=== PATIENT | male | born 1960 | race Caucasian/White ===

== ENCOUNTER 2022-06-08 15:37 | Inpatient (IN) ==
[2022-06-08] MEDS ORDERED: FUROSEMIDE 40 MG/4 ML VIAL IV STA (16:15)
[2022-06-08 17:05] LABS: INR 1.2; PT Patient Result 13.5 SECS (10.1-12.1)
[2022-06-08 17:08] LABS: Albumin 3.2 G/DL (3.4-5.0); Bilirubin,Total 0.9 MG/DL (0.20-1.00); Calcium 9.1 MG/DL (8.5-10.1); Osmolality,Calculated 289.1 MOS/KG (273-304); Potassium 4.4 MMOL/L (3.5-5.1); Total Protein 6.4 G/DL (6.4-8.2)
[2022-06-08] MEDS ORDERED: ACETAMINOPHEN 325 MG TABLET PO PRN (17:27)
[2022-06-08] MEDS ORDERED: hydrALAZINE 20 MG/1 ML VIAL IV PRN (17:27)
[2022-06-08 17:29] LABS: Basophils # 0.1 10*3/uL (0.0-0.2); Eosinophils # 0.7 10*3/uL (0.0-0.87); Eosinophils % 10.5 % (0.00-10.9); Hematocrit 34.8 VOL% (42.0-52.0); Hemoglobin 11.1 GM/DL (14.0-18.0); Immature Granulocytes % 0.2 %; Immature Granulocytes Absolute 0.01 #; Lymphocytes # 0.7 10*3/uL (1.4-4.0); Lymphocytes % 11.5 % (21.2-54.2); Mean Corpuscular HGB Conc 31.9 GM/DL (32-36); Mean Corpuscular Volume 96.1 FL (87-102); Mean Platelet Volume 11.5 FL (9.6-12.0); Monocytes # 0.5 10*3/uL (0.11-0.8); Monocytes % 8.7 % (1.7-12.7); Neutrophils % 68.1 % (38.7-73.9); Platelet Count 129 T/CUMM (130-400); Red Blood Count 3.62 MC/CUMM (3.8-5.5); Red Cell Distribution Width 17.9 % (9.3-17.3); White Blood Count 6.2 T/CUMM (4-12)
[2022-06-08 17:40] LABS: Anisocytosis 1+; Band Neutrophils 1 % (0-10); Lymphocytes 14 % (20-55); Platelet Estimate Decreased; Total Cells Counted 100
[2022-06-09 05:17] LABS: Basophils # 0.1 10*3/uL (0.0-0.2); Basophils % 1.1 % (0.0-0.8); Eosinophils # 0.7 10*3/uL (0.0-0.87); Eosinophils % 11.5 % (0.00-10.9); Hematocrit 32.8 VOL% (42.0-52.0); Hemoglobin 10.7 GM/DL (14.0-18.0); Immature Granulocytes % 0.2 %; Immature Granulocytes Absolute 0.01 #; Lymphocytes # 0.7 10*3/uL (1.4-4.0); Lymphocytes % 10.9 % (21.2-54.2); Mean Corpuscular HGB Conc 32.6 GM/DL (32-36); Mean Corpuscular Volume 95.6 FL (87-102); Mean Platelet Volume 11.2 FL (9.6-12.0); Monocytes # 0.7 10*3/uL (0.11-0.8); Monocytes % 11.4 % (1.7-12.7); Neutrophils % 64.9 % (38.7-73.9); Platelet Count 124 T/CUMM (130-400); Red Blood Count 3.43 MC/CUMM (3.8-5.5); Red Cell Distribution Width 17.8 % (9.3-17.3); White Blood Count 6.4 T/CUMM (4-12)
[2022-06-09 05:40] LABS: Calcium 9.1 MG/DL (8.5-10.1); Osmolality,Calculated 289.2 MOS/KG (273-304); Potassium 4.4 MMOL/L (3.5-5.1); Risk Ratio 2.66; Thyroid Stimulating Hormone 1.32 uIU/ml (0.358-3.74)
[2022-06-09 05:48] LABS: Eosinophils 14 % (0-10); Lymphocytes 3 % (20-55); Platelet Estimate Normal; Total Cells Counted 100
[2022-06-09 05:49] LABS: Ovalocytes Slight
[2022-06-09] MEDS: PANTOPRAZOLE 40 MG TABLET PO SCH (08:11)
[2022-06-09] MEDS ORDERED: TISSUE ADHESIVE 1 EACH APPLICATOR TOP ONE (10:19)
[2022-06-09] MEDS ORDERED: SKIN HEALING OINT (AQUAPHOR) 50 GM TUBE TOP PRN (12:36)
[2022-06-09] MEDS ORDERED: ONDANSETRON 4 MG/2 ML VIAL IV PRN (12:40)
[2022-06-09] MEDS: carvediloL 3.125 MG TABLET PO SCH (18:13)
[2022-06-09] MEDS ORDERED: GLUCAGON 1 MG VIAL IM PRN (18:57)
[2022-06-09] MEDS ORDERED: DEXTROSE 10% 250 ML BAG IV PRN (19:18)
[2022-06-09] MEDS: SACUBITRIL/VALSARTAN 49-51 MG TABLET PO SCH (20:54)
[2022-06-09] MEDS: HEPARIN 5,000 UNIT/1 ML VIAL SUBCUT SCH (21:15)
[2022-06-09] MEDS: MORPHINE 2 MG/1 ML SYRINGE IV PRN (23:43)
[2022-06-10] MEDS: MORPHINE 2 MG/1 ML SYRINGE IV PRN ×2 (05:43→12:18)
[2022-06-10 05:59] LABS: % Iron Saturation 24.5 % (18-50)
[2022-06-10 06:36] LABS: Hepatitis B Core IgM Quant 0.16 Index; Hepatitis B Surface Ag Quant < 0.10 Index; Hepatitis B Surface Ag Result Non-Reactive (NonReactive); Hepatitis C Virus Ab Quant 0.11 Index; Hepatitis C Virus Ab Result Non-Reactive (NonReactive)
[2022-06-10 07:45] LABS: Basophils # 0.1 10*3/uL (0.0-0.2); Basophils % 0.9 % (0.0-0.8); Eosinophils # 1.1 10*3/uL (0.0-0.87); Eosinophils % 16.2 % (0.00-10.9); Hematocrit 34.1 VOL% (42.0-52.0); Hemoglobin 11.1 GM/DL (14.0-18.0); Immature Granulocytes % 0.2 %; Immature Granulocytes Absolute 0.01 #; Lymphocytes # 0.8 10*3/uL (1.4-4.0); Lymphocytes % 11.6 % (21.2-54.2); Mean Corpuscular HGB Conc 32.6 GM/DL (32-36); Mean Corpuscular Volume 95.8 FL (87-102); Mean Platelet Volume 12.5 FL (9.6-12.0); Monocytes # 0.6 10*3/uL (0.11-0.8); Monocytes % 9.9 % (1.7-12.7); Neutrophils % 61.2 % (38.7-73.9); Platelet Count 132 T/CUMM (130-400); Red Blood Count 3.56 MC/CUMM (3.8-5.5); Red Cell Distribution Width 17.7 % (9.3-17.3); White Blood Count 6.5 T/CUMM (4-12)
[2022-06-10 08:04] LABS: Eosinophils 21 % (0-10); Hypochromia Slight; Lymphocytes 12 % (20-55); Ovalocytes Slight; Total Cells Counted 100
[2022-06-10 08:05] LABS: Acanthocytes Few; Microcytosis 1+; Platelet Estimate Adequate
[2022-06-10 08:20] LABS: Albumin 2.9 G/DL (3.4-5.0); Bilirubin,Total 0.8 MG/DL (0.20-1.00); Calcium 8.6 MG/DL (8.5-10.1); Osmolality,Calculated 289.2 MOS/KG (273-304); Potassium 4.8 MMOL/L (3.5-5.1); Total Protein 5.8 G/DL (6.4-8.2)
[2022-06-10] MEDS ORDERED: DAPAGLIFLOZIN 5 MG TABLET PO SCH (09:00)
[2022-06-10] MEDS: ASPIRIN CHEW 81 MG TABLET PO SCH (10:06)
[2022-06-10] MEDS: carvediloL 3.125 MG TABLET PO SCH ×2 (10:06→16:13)
[2022-06-10] MEDS: SACUBITRIL/VALSARTAN 49-51 MG TABLET PO SCH ×2 (10:06→20:11)
[2022-06-10] MEDS ORDERED: HEPARIN 10,000 UNIT/10 ML VIAL IV SCH (10:15)
[2022-06-10] MEDS: PANTOPRAZOLE 40 MG TABLET PO SCH (10:39)
[2022-06-10] MEDS: GABAPENTIN 300 MG CAPSULE PO SCH ×2 (12:16→20:11)
[2022-06-10] MEDS: HEPARIN 5,000 UNIT/1 ML VIAL SUBCUT SCH ×2 (12:17→20:11)
[2022-06-11 05:26] LABS: Basophils # 0.1 10*3/uL (0.0-0.2); Basophils % 1.1 % (0.0-0.8); Eosinophils # 1.3 10*3/uL (0.0-0.87); Eosinophils % 21.2 % (0.00-10.9); Hematocrit 35.5 VOL% (42.0-52.0); Hemoglobin 11.4 GM/DL (14.0-18.0); Immature Granulocytes % 0.3 %; Immature Granulocytes Absolute 0.02 #; Lymphocytes # 0.8 10*3/uL (1.4-4.0); Lymphocytes % 13.1 % (21.2-54.2); Mean Corpuscular HGB Conc 32.1 GM/DL (32-36); Mean Corpuscular Volume 95.7 FL (87-102); Mean Platelet Volume 11.5 FL (9.6-12.0); Monocytes # 0.6 10*3/uL (0.11-0.8); Monocytes % 10.1 % (1.7-12.7); Neutrophils % 54.2 % (38.7-73.9); Platelet Count 122 T/CUMM (130-400); Red Blood Count 3.71 MC/CUMM (3.8-5.5); Red Cell Distribution Width 17.5 % (9.3-17.3); White Blood Count 6.1 T/CUMM (4-12)
[2022-06-11 05:47] LABS: Albumin 2.6 G/DL (3.4-5.0); Bilirubin,Total 0.7 MG/DL (0.20-1.00); Osmolality,Calculated 282.2 MOS/KG (273-304); Potassium 4.9 MMOL/L (3.5-5.1); Total Protein 5.5 G/DL (6.4-8.2)
[2022-06-11 06:15] LABS: Eosinophils 22 % (0-10); Lymphocytes 15 % (20-55); Platelet Estimate Adequate; Total Cells Counted 100
[2022-06-11] MEDS: carvediloL 3.125 MG TABLET PO SCH (09:31)
[2022-06-11] MEDS ORDERED: TISSUE ADHESIVE 1 EACH APPLICATOR TOP ONE (10:19)
[2022-06-11] MEDS: ASPIRIN CHEW 81 MG TABLET PO SCH (10:46)
[2022-06-11] MEDS: HEPARIN 5,000 UNIT/1 ML VIAL SUBCUT SCH ×2 (10:46→20:25)
[2022-06-11] MEDS: PANTOPRAZOLE 40 MG TABLET PO SCH (10:47)
[2022-06-11] MEDS: GABAPENTIN 300 MG CAPSULE PO SCH ×2 (10:47→20:26)
[2022-06-11 11:43] LABS: Neutrophils,Peritoneal Fluid 3 %
[2022-06-11 11:45] LABS: RBC,Peritoneal Fluid 301 T/CUMM
[2022-06-12] MEDS: ASPIRIN CHEW 81 MG TABLET PO SCH (08:07)
[2022-06-12] MEDS: HEPARIN 5,000 UNIT/1 ML VIAL SUBCUT SCH ×2 (08:07→22:00)
[2022-06-12] MEDS: PANTOPRAZOLE 40 MG TABLET PO SCH (08:07)
[2022-06-12] MEDS: GABAPENTIN 300 MG CAPSULE PO SCH ×2 (08:07→22:00)
[2022-06-13 05:07] LABS: Basophils # 0.1 10*3/uL (0.0-0.2); Basophils % 0.6 % (0.0-0.8); Eosinophils # 1.3 10*3/uL (0.0-0.87); Eosinophils % 16.4 % (0.00-10.9); Hematocrit 35.8 VOL% (42.0-52.0); Hemoglobin 11.4 GM/DL (14.0-18.0); Immature Granulocytes % 0.1 %; Immature Granulocytes Absolute 0.01 #; Lymphocytes # 0.6 10*3/uL (1.4-4.0); Lymphocytes % 7.6 % (21.2-54.2); Mean Corpuscular HGB Conc 31.8 GM/DL (32-36); Mean Corpuscular Volume 96.8 FL (87-102); Mean Platelet Volume 12.2 FL (9.6-12.0); Monocytes # 0.7 10*3/uL (0.11-0.8); Monocytes % 7.9 % (1.7-12.7); Neutrophils % 67.4 % (38.7-73.9); Platelet Count 126 T/CUMM (130-400); Red Cell Distribution Width 17.5 % (9.3-17.3); White Blood Count 8.2 T/CUMM (4-12)
[2022-06-13 05:30] LABS: Eosinophils 12 % (0-10); Lymphocytes 11 % (20-55); Total Cells Counted 100
[2022-06-13 05:44] LABS: Albumin 2.8 G/DL (3.4-5.0); Bilirubin,Total 0.6 MG/DL (0.20-1.00); Calcium 8.3 MG/DL (8.5-10.1); Osmolality,Calculated 284.1 MOS/KG (273-304); Potassium 4.8 MMOL/L (3.5-5.1)
[2022-06-13] MEDS: ASPIRIN CHEW 81 MG TABLET PO SCH (10:30)
[2022-06-13] MEDS: PANTOPRAZOLE 40 MG TABLET PO SCH (10:31)
[2022-06-13] MEDS: GABAPENTIN 300 MG CAPSULE PO SCH (10:31)
[2022-06-13] MEDS: HEPARIN 5,000 UNIT/1 ML VIAL SUBCUT SCH ×2 (10:32→20:41)
[2022-06-14 05:23] LABS: Basophils # 0.1 10*3/uL (0.0-0.2); Basophils % 0.6 % (0.0-0.8); Eosinophils # 1.6 10*3/uL (0.0-0.87); Eosinophils % 20.6 % (0.00-10.9); Hemoglobin 11.2 GM/DL (14.0-18.0); Immature Granulocytes % 0.4 %; Immature Granulocytes Absolute 0.03 #; Lymphocytes # 0.8 10*3/uL (1.4-4.0); Lymphocytes % 10.2 % (21.2-54.2); Mean Corpuscular Volume 96.7 FL (87-102); Mean Platelet Volume 11.8 FL (9.6-12.0); Monocytes # 0.7 10*3/uL (0.11-0.8); Monocytes % 8.7 % (1.7-12.7); Neutrophils % 59.5 % (38.7-73.9); Platelet Count 131 T/CUMM (130-400); Red Blood Count 3.62 MC/CUMM (3.8-5.5); Red Cell Distribution Width 17.4 % (9.3-17.3); White Blood Count 7.8 T/CUMM (4-12)
[2022-06-14 05:43] LABS: Phosphorous 5.9 MG/DL (2.5-4.9); Uric Acid 5.8 MG/DL (3.5-7.2)
[2022-06-14 05:44] LABS: Eosinophils 21 % (0-10); Hypochromia Slight; Lymphocytes 12 % (20-55); Total Cells Counted 100
[2022-06-14 05:45] LABS: Acanthocytes Few; Macrocytosis Slight; Ovalocytes Slight; Platelet Estimate Adequate
[2022-06-14 05:51] LABS: Albumin 2.7 G/DL (3.4-5.0); Bilirubin,Total 0.6 MG/DL (0.20-1.00); Calcium 8.1 MG/DL (8.5-10.1); Osmolality,Calculated 284.2 MOS/KG (273-304); Potassium 5.3 MMOL/L (3.5-5.1); Total Protein 5.6 G/DL (6.4-8.2)
[2022-06-14 06:02] LABS: Calcium 8.2 MG/DL (8.5-10.1); Osmolality,Calculated 283.2 MOS/KG (273-304)
[2022-06-14] MEDS: ASPIRIN CHEW 81 MG TABLET PO SCH (08:44)
[2022-06-14] MEDS: PANTOPRAZOLE 40 MG TABLET PO SCH (08:44)
[2022-06-15 04:34] LABS: Basophils # 0.1 10*3/uL (0.0-0.2); Basophils % 0.7 % (0.0-0.8); Eosinophils # 1.5 10*3/uL (0.0-0.87); Eosinophils % 20.4 % (0.00-10.9); Hematocrit 33.8 VOL% (42.0-52.0); Hemoglobin 10.9 GM/DL (14.0-18.0); Immature Granulocytes % 0.4 %; Immature Granulocytes Absolute 0.03 #; Lymphocytes # 0.8 10*3/uL (1.4-4.0); Lymphocytes % 10.4 % (21.2-54.2); Mean Corpuscular HGB Conc 32.2 GM/DL (32-36); Mean Corpuscular Volume 95.8 FL (87-102); Mean Platelet Volume 11.9 FL (9.6-12.0); Monocytes # 0.7 10*3/uL (0.11-0.8); Monocytes % 9.6 % (1.7-12.7); Neutrophils % 58.5 % (38.7-73.9); Platelet Count 158 T/CUMM (130-400); Red Blood Count 3.53 MC/CUMM (3.8-5.5); Red Cell Distribution Width 17.3 % (9.3-17.3); White Blood Count 7.2 T/CUMM (4-12)
[2022-06-15 04:51] LABS: Albumin 2.5 G/DL (3.4-5.0); Bilirubin,Total 0.6 MG/DL (0.20-1.00); Calcium 8.2 MG/DL (8.5-10.1); Osmolality,Calculated 281.8 MOS/KG (273-304); Potassium 4.8 MMOL/L (3.5-5.1); Total Protein 5.6 G/DL (6.4-8.2)
[2022-06-15 05:23] LABS: Eosinophils 15 % (0-10); Lymphocytes 8 % (20-55); Ovalocytes Slight; Platelet Estimate Adequate; Total Cells Counted 100
[2022-06-15 05:24] LABS: Hypochromia Slight; Macrocytosis Slight
[2022-06-15] MEDS: PANTOPRAZOLE 40 MG TABLET PO SCH (09:21)
[2022-06-15] MEDS ORDERED: DIAZEPAM 5 MG TABLET PO ONE (11:54)
[2022-06-15] MEDS ORDERED: LOPERAMIDE 2 MG CAPSULE PO PRN (12:09)
[2022-06-15] MEDS: SODIUM CHLORIDE 0.45% 1,000 ML IV SCH (12:23)
[2022-06-15] MEDS ORDERED: ALUMINUM/MAGNES/SIMETH MAX STR 30 ML UDCUP PO PRN (21:25)
[2022-06-16 05:13] LABS: Basophils # 0.1 10*3/uL (0.0-0.2); Basophils % 0.7 % (0.0-0.8); Eosinophils # 1.3 10*3/uL (0.0-0.87); Eosinophils % 17.5 % (0.00-10.9); Hematocrit 33.8 VOL% (42.0-52.0); Hemoglobin 10.8 GM/DL (14.0-18.0); Immature Granulocytes % 0.3 %; Immature Granulocytes Absolute 0.02 #; Lymphocytes # 0.7 10*3/uL (1.4-4.0); Lymphocytes % 9.8 % (21.2-54.2); Mean Corpuscular Volume 96.3 FL (87-102); Mean Platelet Volume 11.3 FL (9.6-12.0); Monocytes # 0.8 10*3/uL (0.11-0.8); Monocytes % 10.8 % (1.7-12.7); Neutrophils % 60.9 % (38.7-73.9); Platelet Count 126 T/CUMM (130-400); Red Blood Count 3.51 MC/CUMM (3.8-5.5); Red Cell Distribution Width 17.5 % (9.3-17.3); White Blood Count 7.2 T/CUMM (4-12)
[2022-06-16 05:34] LABS: Calcium 8.3 MG/DL (8.5-10.1); Osmolality,Calculated 280.5 MOS/KG (273-304); Potassium 4.9 MMOL/L (3.5-5.1)
[2022-06-16 05:41] LABS: Acanthocytes Few; Eosinophils 13 % (0-10); Hypochromia Slight; Lymphocytes 10 % (20-55); Ovalocytes Slight; Target Cells Slight; Total Cells Counted 100
[2022-06-16 05:42] LABS: Macrocytosis Slight
[2022-06-16] MEDS: PANTOPRAZOLE 40 MG TABLET PO SCH (09:09)
[2022-06-16] MEDS: SODIUM CHLORIDE 0.45% 1,000 ML IV SCH (13:39)
[2022-06-17] MEDS ORDERED: ACETAMINOPHEN 325 MG TABLET PO PRN (01:09)
[2022-06-17] MEDS: MORPHINE 2 MG/1 ML SYRINGE IV PRN ×2 (01:51→19:15)
[2022-06-17] MEDS: PANTOPRAZOLE 40 MG TABLET PO SCH (11:38)
[2022-06-17] MEDS ORDERED: ACETAMINOPHEN 500 MG TABLET PO PRN (19:28)
[2022-06-17] MEDS: GABAPENTIN 300 MG CAPSULE PO SCH (22:18)
[2022-06-17] MEDS: VITAMIN E 400 UNIT CAPSULE PO SCH (22:19)
[2022-06-18 05:43] LABS: Basophils # 0.1 10*3/uL (0.0-0.2); Basophils % 0.8 % (0.0-0.8); Eosinophils # 1.1 10*3/uL (0.0-0.87); Eosinophils % 17.1 % (0.00-10.9); Hematocrit 32.4 VOL% (42.0-52.0); Hemoglobin 10.6 GM/DL (14.0-18.0); Immature Granulocytes % 0.2 %; Immature Granulocytes Absolute 0.01 #; Lymphocytes # 0.7 10*3/uL (1.4-4.0); Lymphocytes % 11.1 % (21.2-54.2); Mean Corpuscular HGB Conc 32.7 GM/DL (32-36); Monocytes # 0.7 10*3/uL (0.11-0.8); Monocytes % 11.5 % (1.7-12.7); Neutrophils % 59.3 % (38.7-73.9); Platelet Count 118 T/CUMM (130-400); Red Blood Count 3.41 MC/CUMM (3.8-5.5); Red Cell Distribution Width 17.2 % (9.3-17.3); White Blood Count 6.2 T/CUMM (4-12)
[2022-06-18 05:59] LABS: Calcium 8.7 MG/DL (8.5-10.1); Osmolality,Calculated 278.7 MOS/KG (273-304); Potassium 4.6 MMOL/L (3.5-5.1)
[2022-06-18 06:55] LABS: Eosinophils 11 % (0-10); Lymphocytes 19 % (20-55); Total Cells Counted 100
[2022-06-18 06:56] LABS: Acanthocytes Few; Hypochromia Slight; Macrocytosis Slight; Ovalocytes Few; Platelet Estimate Adequate
[2022-06-18] MEDS: GABAPENTIN 300 MG CAPSULE PO SCH (13:32)
[2022-06-18] MEDS: VITAMIN E 400 UNIT CAPSULE PO SCH (13:32)
[2022-06-18] MEDS: PANTOPRAZOLE 40 MG TABLET PO SCH (13:32)
[2022-06-18 13:55] VITALS: BP 128/66
== END 2022-06-18 15:00 | disposition home health service (06) | DRG 441 ==
LOC: N.ED 15:37 → N.EDINP 17:27 → SUATTDRO 17:27 → N.TELEN 19:55
PROVIDERS: ADMIT Internal Medicine; ATTEND Internal Medicine

== ENCOUNTER 2022-07-01 13:52 | Inpatient (IN) ==
[2022-07-01] MEDS ORDERED: MORPHINE 2 MG/1 ML SYRINGE IV ONE (17:37)
[2022-07-01] MEDS ORDERED: ONDANSETRON 4 MG/2 ML VIAL IV ONE (17:37)
[2022-07-01 18:03] LABS: Basophils % 0.4 % (0.0-0.8); Eosinophils # 0.3 10*3/uL (0.0-0.87); Eosinophils % 3.6 % (0.00-10.9); Hematocrit 36.5 VOL% (42.0-52.0); Hemoglobin 11.2 GM/DL (14.0-18.0); Immature Granulocytes % 0.4 %; Immature Granulocytes Absolute 0.03 #; Lymphocytes # 0.5 10*3/uL (1.4-4.0); Lymphocytes % 6.2 % (21.2-54.2); Mean Corpuscular HGB Conc 30.7 GM/DL (32-36); Mean Corpuscular Volume 98.6 FL (87-102); Monocytes # 0.8 10*3/uL (0.11-0.8); Neutrophils % 79.4 % (38.7-73.9); Platelet Count 191 T/CUMM (130-400); Red Cell Distribution Width 16.1 % (9.3-17.3); White Blood Count 8.1 T/CUMM (4-12)
[2022-07-01 18:12] LABS: INR 1.3; PT Patient Result 13.8 SECS (10.1-12.1)
[2022-07-01 18:27] LABS: Bilirubin,Total 0.8 MG/DL (0.20-1.00); Calcium 8.6 MG/DL (8.5-10.1); Osmolality,Calculated 279.7 MOS/KG (273-304); Potassium 3.7 MMOL/L (3.5-5.1); Total Protein 6.6 G/DL (6.4-8.2)
[2022-07-01] MEDS ORDERED: DEXTROSE 10% 250 ML BAG IV PRN (19:40)
[2022-07-01] MEDS ORDERED: GLUCAGON 1 MG VIAL IM PRN (19:40)
[2022-07-01] MEDS ORDERED: ACETAMINOPHEN 325 MG TABLET PO PRN (19:40)
[2022-07-01] MEDS ORDERED: hydrALAZINE 20 MG/1 ML VIAL IV PRN (19:40)
[2022-07-01] MEDS ORDERED: PRAMOXINE/HYDROCORTISONE RECTAL FOAM 10 GM CAN RECTAL PRN (20:21)
[2022-07-01] MEDS: ONDANSETRON 4 MG/2 ML VIAL IV PRN (22:56)
[2022-07-01] MEDS: MORPHINE 2 MG/1 ML SYRINGE IV PRN (22:56)
[2022-07-02] MEDS: MORPHINE 2 MG/1 ML SYRINGE IV PRN ×2 (02:55→21:23)
[2022-07-02] MEDS: ONDANSETRON 4 MG/2 ML VIAL IV PRN ×2 (03:11→21:29)
[2022-07-02 04:37] LABS: Basophils % 0.3 % (0.0-0.8); Eosinophils # 0.3 10*3/uL (0.0-0.87); Eosinophils % 3.8 % (0.00-10.9); Hematocrit 35.4 VOL% (42.0-52.0); Immature Granulocytes % 0.5 %; Immature Granulocytes Absolute 0.04 #; Lymphocytes # 0.6 10*3/uL (1.4-4.0); Lymphocytes % 6.8 % (21.2-54.2); Mean Corpuscular HGB Conc 31.1 GM/DL (32-36); Mean Corpuscular Volume 98.9 FL (87-102); Mean Platelet Volume 11.2 FL (9.6-12.0); Monocytes # 0.9 10*3/uL (0.11-0.8); Monocytes % 10.4 % (1.7-12.7); Neutrophils % 78.2 % (38.7-73.9); Platelet Count 202 T/CUMM (130-400); Red Blood Count 3.58 MC/CUMM (3.8-5.5); Red Cell Distribution Width 16.1 % (9.3-17.3); White Blood Count 8.8 T/CUMM (4-12)
[2022-07-02 04:51] LABS: Calcium 8.4 MG/DL (8.5-10.1); Osmolality,Calculated 280.7 MOS/KG (273-304); Potassium 4.1 MMOL/L (3.5-5.1)
[2022-07-02] MEDS ORDERED: SKIN HEALING OINT (AQUAPHOR) 50 GM TUBE TOP PRN (05:42)
[2022-07-02] MEDS: ASPIRIN CHEW 81 MG TABLET PO SCH (08:45)
[2022-07-02] MEDS ORDERED: TISSUE ADHESIVE 1 EACH APPLICATOR TOP ONE (09:45)
[2022-07-02] MEDS: PANTOPRAZOLE 40 MG TABLET PO SCH (10:11)
[2022-07-02] MEDS: GABAPENTIN 300 MG CAPSULE PO SCH ×3 (10:12→21:12)
[2022-07-02] MEDS: HEPARIN 5,000 UNIT/1 ML VIAL SUBCUT SCH (20:55)
[2022-07-02] MEDS: ZINC OXIDE PASTE 113 GM TUBE TOP SCH (21:06)
[2022-07-03] MEDS: MORPHINE 2 MG/1 ML SYRINGE IV PRN (04:07)
[2022-07-03 06:06] LABS: Basophils # 0.1 10*3/uL (0.0-0.2); Basophils % 0.6 % (0.0-0.8); Eosinophils # 0.3 10*3/uL (0.0-0.87); Eosinophils % 2.5 % (0.00-10.9); Hematocrit 37.9 VOL% (42.0-52.0); Hemoglobin 11.7 GM/DL (14.0-18.0); Immature Granulocytes % 0.3 %; Immature Granulocytes Absolute 0.03 #; Lymphocytes # 0.9 10*3/uL (1.4-4.0); Lymphocytes % 8.4 % (21.2-54.2); Mean Corpuscular HGB Conc 30.9 GM/DL (32-36); Mean Corpuscular Volume 99.5 FL (87-102); Mean Platelet Volume 11.7 FL (9.6-12.0); Neutrophils % 78.2 % (38.7-73.9); Platelet Count 210 T/CUMM (130-400); Red Blood Count 3.81 MC/CUMM (3.8-5.5); White Blood Count 10.4 T/CUMM (4-12)
[2022-07-03 06:21] LABS: Calcium 8.8 MG/DL (8.5-10.1); Osmolality,Calculated 276.2 MOS/KG (273-304); Potassium 4.4 MMOL/L (3.5-5.1)
[2022-07-03] MEDS ORDERED: METOPROLOL SUCCINATE XL 25 MG TABLET PO SCH (09:00)
[2022-07-03] MEDS ORDERED: LOSARTAN 50 MG TABLET PO SCH (09:00)
[2022-07-03] MEDS: ASPIRIN CHEW 81 MG TABLET PO SCH (09:02)
[2022-07-03] MEDS: ZINC OXIDE PASTE 113 GM TUBE TOP SCH ×2 (09:02→22:29)
[2022-07-03] MEDS: PANTOPRAZOLE 40 MG TABLET PO SCH (09:03)
[2022-07-03] MEDS: GABAPENTIN 300 MG CAPSULE PO SCH ×2 (09:03→21:33)
[2022-07-03] MEDS: HEPARIN 5,000 UNIT/1 ML VIAL SUBCUT SCH ×2 (09:04→22:29)
[2022-07-03] MEDS ORDERED: HEPARIN 10,000 UNIT/10 ML VIAL IV PRN (11:30)
[2022-07-04 05:05] LABS: Basophils # 0.1 10*3/uL (0.0-0.2); Basophils % 0.7 % (0.0-0.8); Eosinophils # 0.4 10*3/uL (0.0-0.87); Eosinophils % 4.5 % (0.00-10.9); Hematocrit 36.7 VOL% (42.0-52.0); Hemoglobin 11.2 GM/DL (14.0-18.0); Immature Granulocytes % 0.3 %; Immature Granulocytes Absolute 0.03 #; Lymphocytes # 0.7 10*3/uL (1.4-4.0); Lymphocytes % 8.2 % (21.2-54.2); Mean Corpuscular HGB Conc 30.5 GM/DL (32-36); Mean Corpuscular Volume 98.7 FL (87-102); Mean Platelet Volume 11.1 FL (9.6-12.0); Monocytes # 0.9 10*3/uL (0.11-0.8); Neutrophils % 76.3 % (38.7-73.9); Platelet Count 177 T/CUMM (130-400); Red Blood Count 3.72 MC/CUMM (3.8-5.5); Red Cell Distribution Width 15.9 % (9.3-17.3); White Blood Count 8.7 T/CUMM (4-12)
[2022-07-04 05:24] LABS: Calcium 8.2 MG/DL (8.5-10.1); Osmolality,Calculated 283.7 MOS/KG (273-304); Potassium 4.3 MMOL/L (3.5-5.1)
[2022-07-04] MEDS: POLYETHYLENE GLYCOL POWDER 17 GM PACK PO SCH (08:40)
[2022-07-04] MEDS: PANTOPRAZOLE 40 MG TABLET PO SCH (08:40)
[2022-07-04] MEDS: LOSARTAN 25 MG TABLET PO SCH (08:40)
[2022-07-04] MEDS: ASPIRIN CHEW 81 MG TABLET PO SCH (08:40)
[2022-07-04] MEDS: HEPARIN 5,000 UNIT/1 ML VIAL SUBCUT SCH ×2 (08:41→21:28)
[2022-07-04] MEDS: GABAPENTIN 300 MG CAPSULE PO SCH ×2 (08:54→22:11)
[2022-07-04] MEDS: ZINC OXIDE PASTE 113 GM TUBE TOP SCH ×2 (08:55→22:11)
[2022-07-04] MEDS ORDERED: POLYETHYLENE GLYCOL POWDER 17 GM PACK PO SCH (09:00)
[2022-07-04] MEDS: MORPHINE 2 MG/1 ML SYRINGE IV PRN (21:29)
[2022-07-05 04:57] LABS: Basophils % 0.4 % (0.0-0.8); Eosinophils # 0.5 10*3/uL (0.0-0.87); Eosinophils % 5.5 % (0.00-10.9); Hemoglobin 11.1 GM/DL (14.0-18.0); Immature Granulocytes % 0.1 %; Immature Granulocytes Absolute 0.01 #; Lymphocytes # 0.8 10*3/uL (1.4-4.0); Lymphocytes % 9.6 % (21.2-54.2); Mean Corpuscular HGB Conc 30.8 GM/DL (32-36); Mean Corpuscular Volume 97.3 FL (87-102); Mean Platelet Volume 11.3 FL (9.6-12.0); Monocytes # 0.8 10*3/uL (0.11-0.8); Monocytes % 9.6 % (1.7-12.7); Neutrophils % 74.8 % (38.7-73.9); Platelet Count 193 T/CUMM (130-400); Red Cell Distribution Width 15.5 % (9.3-17.3); White Blood Count 8.6 T/CUMM (4-12)
[2022-07-05 05:12] LABS: Calcium 8.1 MG/DL (8.5-10.1); Osmolality,Calculated 284.1 MOS/KG (273-304); Potassium 4.7 MMOL/L (3.5-5.1)
[2022-07-05] MEDS ORDERED: metFORMIN 500 MG TABLET PO SCH (08:00)
[2022-07-05] MEDS: PANTOPRAZOLE 40 MG TABLET PO SCH (08:42)
[2022-07-05] MEDS: GABAPENTIN 300 MG CAPSULE PO SCH ×2 (08:42→08:47)
[2022-07-05] MEDS: LOSARTAN 25 MG TABLET PO SCH (08:42)
[2022-07-05] MEDS: POLYETHYLENE GLYCOL POWDER 17 GM PACK PO SCH (08:42)
[2022-07-05] MEDS: ASPIRIN CHEW 81 MG TABLET PO SCH (08:42)
[2022-07-05] MEDS: ZINC OXIDE PASTE 113 GM TUBE TOP SCH (08:47)
[2022-07-05] MEDS ORDERED: ISOSORBIDE MONONITRATE 30 MG TABLET PO SCH (09:00)
[2022-07-05] MEDS: HEPARIN 5,000 UNIT/1 ML VIAL SUBCUT SCH (09:23)
[2022-07-05] MEDS ORDERED: DOCUSATE SODIUM 100 MG CAPSULE PO SCH (12:30)
[2022-07-05 15:14] VITALS: BP 141/86
== END 2022-07-05 17:30 | disposition home health service (06) | DRG 441 ==
LOC: N.ED 13:52 → SUATTDRO 19:40 → N.EDINP 19:40 → N.TELES 07-02 12:15
PROVIDERS: ADMIT Emergency Medicine; ATTEND Hospitalist